=== PATIENT | female | born 1990 | race Caucasian/White ===

== ENCOUNTER 2020-07-28 16:37 | Inpatient (IN) | payer BC, OTHER ==
[~2020-07-28] VITALS: Ht 154.9 cm; Wt 73.6 kg
[2020-07-28] MEDS ORDERED: OXYTOCIN 30U/ 0.9% NaCL 500ML 500 ML IV SCH (17:00)
[2020-07-28] MEDS ORDERED: DOCUSATE 100 MG CAPSULE PO PRN (17:00)
[2020-07-28] MEDS ORDERED: ACETAMINOPHEN 325 MG TABLET PO PRN (17:00)
[2020-07-28] MEDS ORDERED: MISOPROSTOL 200 MCG TABLET PR PRN (17:00)
[2020-07-28] MEDS ORDERED: METHYLERGONOVINE 0.2 MG/ML IM PRN (17:00)
[2020-07-28] MEDS ORDERED: SIMETHICONE 80 MG CHEW TAB PO PRN (17:00)
[2020-07-28] MEDS ORDERED: IBUPROFEN 600 MG TABLET PO PRN (17:00)
[2020-07-28] MEDS ORDERED: LIDOCAINE 1%, 20ML ONE (17:06)
[2020-07-28] MEDS ORDERED: FENTANYL PF 100 MCG/2ML ONE (17:21)
[2020-07-28] MEDS ORDERED: CEFAZOLIN 2,000 MG in SODIUM CHLORIDE 0.9% 50 ML IV ONE (17:30)
[2020-07-28] MEDS ORDERED: FENTANYL PF 100 MCG/2ML IV ONE (18:00)
[2020-07-29] MEDS ORDERED: PRENATAL VIT/IRON/FA 1 EACH TABLET PO SCH (09:00)
== END 2020-07-28 19:30 | disposition home or self-care (01) | DRG 776 ==
LOC: LDOP 16:37 → LDIP 16:47
PROVIDERS: ADMIT Obstetrics & Gynecology; ATTEND Obstetrics & Gynecology
PROC: 0W8NXZZ Division of Female Perineum, External Approach (ICD-10-PCS; principal; 2020-07-28)
DX: O99.893 Other specified diseases and conditions complicating puerperium (principal)
CPT/HCPCS: G0378; J0690; J3010